=== PATIENT | male | born 1980 | race Caucasian/White ===

== ENCOUNTER 2017-05-20 17:08 | Emergency (ER) | payer OTHER ==
[~2017-05-20] VITALS: Ht 172.7 cm; Wt 152.9 kg
[~2017-05-20 17:08] MED LIST: ACETAMINOPHEN-1 EAC1 PO; CEPHALEXIN 500500 M3 PO; CIPRO500 M1 PO; FLAGYL500 MG PO; IBUPROFEN 800800 M1 PO; PENICILLIN VK500 M1 PO; PREDNISONE 20 M20 MG PO; PROAIR HFA8.5 GM INH; ZPAK PO
[2017-05-20 17:31] LABS: URINE BILIRUBIN NEGATIVE (Negative); URINE BLOOD 3+ (Negative); URINE CLARITY CLOUDY; URINE COLOR RED; URINE GLUCOSE-RANDOM NEGATIVE (Negative); URINE KETONES NEGATIVE (Negative); URINE NITRITE-REFLEX NEGATIVE (Negative); URINE PROTEIN 2+ (Negative); URINE SPECIFIC GRAVITY >= 1.030 (1.005-1.030); URINE UROBILINOGEN 0.2 E.U./dl (0.2-1.0)
[2017-05-20 17:32] LABS: URINE LEUKOCYTES-REFLEX 2+ (Negative)
[2017-05-20 17:34] LABS: URINE RBC >20 Many /HPF (0-2)
[2017-05-20 17:36] LABS: CASTS None Seen /LPF (None Seen); CRYSTALS None Seen /LPF (None Seen); SQUAMOUS 0-3 Few /LPF (0-3)
[2017-05-20 17:37] LABS: URINE WBC-REFLEX >25 Many /HPF (0-5)
[2017-05-20 18:40] LABS: INFLUENZA A ANTIGEN None Detected (None Detect); INFLUENZA B ANTIGEN None Detected (None Detect)
[2017-05-20] MEDS ORDERED: DOXYCYCLINE 10100 MG PO (18:52)
[2017-05-20 19:17] VITALS: BP 134/67
== END 2017-05-20 19:25 | disposition home or self-care (01) ==
LOC: M.ERS 17:08
PROVIDERS: Nurse Practitioner Family
DX: A64 Unspecified sexually transmitted disease (principal); N39.0 Urinary tract infection, site not specified

== ENCOUNTER 2018-02-06 19:41 | Emergency (ER) | payer OTHER ==
[~2018-02-06] VITALS: Ht 172.7 cm; Wt 124.7 kg
[~2018-02-06 19:41] MED LIST changes: +DOXYCYCLINE 10100 MG PO
[2018-02-06 20:43] LABS: INFLUENZA A ANTIGEN None Detected (None Detect); INFLUENZA B ANTIGEN None Detected (None Detect)
[2018-02-06] MEDS ORDERED: PREDNISONE 20 M20 MG PO (21:00)
[2018-02-06 21:13] VITALS: BP 126/73
--- NOTE | 2018-02-08 12:32 | EKG ---
[place] [address] ELECTROCARDIOGRAM REPORT Name: ANDREWS WESTON [id number] Admission: 02/06/18 Attend Phys: Discharge: 02/06/18 Date of : 78 Report #: [id number] THIS REPORT FOR: //name// [facility] ED Test Date: 2018-02-06 Test Time: 20:20:10 Pat Name: ANDREWS WESTON Department: Room: Gender: M Banquet Supervisor: : 1980 Requested By: Evita Dugan Order Number: [id number] MD: Juan Miguel Cross Measurements Intervals [place] Rate: 106 P: 25 MD: 152 QRS: -17 QRSD: 95 T: 45 QT: 323 QTc: 429 Interpretive Statements Sinus tachycardia Abnormal R-wave progression, late transition Left ventricular hypertrophy No previous ECG available for comparison Electronically Signed On 02-08-2018 12:31:54 POWER PLANT SUPERVISOR by Juan Miguel Cross [email or web address] <ELECTRONICALLY SIGNED> By: Juan Miguel Cross MD, [facility] 02/08/18 1231 19 19 Juan Miguel Cross MD, FACC /EPI
== END 2018-02-06 21:13 | disposition home or self-care (01) ==
LOC: M.ERS 19:41
PROVIDERS: Nurse Practitioner Family
DX: J03.80 Acute tonsillitis due to other specified organisms (principal)

== ENCOUNTER 2018-03-13 10:56 | Emergency (ER) | payer OTHER ==
[~2018-03-13] VITALS: Ht 172.7 cm; Wt 131.5 kg
[2018-03-13 12:28] LABS: ABSOLUTE LYMPHOCYTES 2.9 thou/uL (0.8-5.3); ABSOLUTE MONOCYTES 0.6 thou/uL (0.0-1.2); ABSOLUTE NEUTROPHILS 2.9 thou/uL (1.6-8.1); BASOPHILS 0.6 %; EOSINOPHILS 0.6 %; HEMATOCRIT 43.9 % (42.0-52.0); HEMOGLOBIN 14.7 gm/dL (14.0-18.0); MCH 30.5 pg (26.0-34.0); MCHC 33.4 g/dL (28.0-37.0); MCV 91.2 fL (80.0-100.0); MONOCYTES 8.8 %; MPV 6.9 fl. (7.2-11.1); NUCLEATED RBCS 0 /100WBC; PLATELET COUNT* 381 thou/uL (150-400); RBC 4.82 mil/uL (4.50-6.00); RDW-CV 15.1 % (10.5-14.5); WBC 6.4 thou/uL (4.0-11.0)
[2018-03-13 13:08] LABS: ANION GAP 5 mmol/L (7-16); BUN 14 mg/dL (7-18); CALCIUM 7.9 mg/dL (8.5-10.1); CHLORIDE 105 mmol/L (98-107); CO2 29 mmol/L (21-32); CREATININE 0.9 mg/dL (0.6-1.3); GLUCOSE 92 mg/dL (70-99); POTASSIUM 4.3 mmol/L (3.5-5.1); SODIUM 139 mmol/L (136-145)
[2018-03-13 13:19] LABS: ALBUMIN 2.7 g/dL (3.4-5.0); ALKALINE PHOSPHATASE 132 U/L (46-116); NT-PRO BRAIN NAT PEPTIDE 45 pg/mL (<300); SGOT 114 U/L (15-37); SGPT 228 U/L (30-65); TOTAL BILIRUBIN 0.3 mg/dL (<0.1-1.0); TOTAL PROTEIN 6.6 g/dL (6.4-8.2); TROPONIN-I LEVEL <0.06 ng/mL (<0.06)
[2018-03-13 15:08] VITALS: BP 152/94
--- NOTE | 2018-03-13 16:50 | EKG ---
[place] [address] ELECTROCARDIOGRAM REPORT Name: ANDREWS WESTON [id number] Admission: 03/13/18 Attend Phys: Discharge: 03/13/18 Date of : 78 Report #: [id number] THIS REPORT FOR: //name// [facility] ED Test Date: 2018-03-13 Test Time: 11:08:26 Pat Name: NADREWS WESTON Department: Room: Gender: M Group Activities Aide: Nichol : 1980 Requested By: William Pizano Order Number: [id number] MD: Andrew Torres Measurements Intervals [place] Rate: 89 P: 11 NM: 151 QRS: -20 QRSD: 91 T: 20 QT: 338 QTc: 412 Interpretive Statements Sinus rhythm Compared to ECG 02/06/2018 20:20:10 Q waves now present Sinus tachycardia no longer present Electronically Signed On 03-13-2018 16:50:27 ELEMENTARY SCHOOL REGISTRAR by Andrew Torres [email or web address] <ELECTRONICALLY SIGNED> By: Andrew Torres MD, [facility] 03/13/18 1650 07 Andrew Torres MD, FACC /EPI
== END 2018-03-13 15:08 | disposition home or self-care (01) ==
LOC: M.ERS 10:56
PROVIDERS: Nurse Practitioner Family
DX: R94.5 Abnormal results of liver function studies (principal); R07.89 Other chest pain

== ENCOUNTER 2018-04-20 14:52 | Emergency (ER) | payer BC ==
[~2018-04-20] VITALS: Ht 172.7 cm; Wt 129.3 kg
[2018-04-20 15:45] LABS: INFLUENZA A ANTIGEN None Detected (None Detect); INFLUENZA B ANTIGEN None Detected (None Detect)
[2018-04-20] MEDS ORDERED: MEDROLDOSEPACK PO (15:49)
[2018-04-20] MEDS ORDERED: AMOXICILLIN875 MG PO (15:49)
[2018-04-20 15:58] VITALS: BP 150/80
== END 2018-04-20 15:59 | disposition home or self-care (01) ==
LOC: M.ERS 14:52
PROVIDERS: Nurse Practitioner Family
DX: J02.0 Streptococcal pharyngitis (principal)

== ENCOUNTER 2018-07-08 12:40 | Emergency (ER) | payer BC ==
[~2018-07-08] VITALS: Ht 172.7 cm; Wt 129.3 kg
[~2018-07-08 12:40] MED LIST changes: +AMOXICILLIN875 MG PO; +MEDROLDOSEPACK PO
[2018-07-08] MEDS ORDERED: ACYCLOVIR 400400 MG PO (13:15)
[2018-07-08] MEDS ORDERED: CENTANY30 GM TOP (13:15)
[2018-07-08] MEDS ORDERED: KEFLEX500 M1 PO (13:15)
[2018-07-08] MEDS ORDERED: ZOVIRAX5 GM TOP (13:15)
[2018-07-08 13:27] VITALS: BP 195/104
== END 2018-07-08 13:28 | disposition home or self-care (01) ==
LOC: M.ERS 12:40
DX: A60.02 Herpesviral infection of other male genital organs (principal); L08.89 Other specified local infections of the skin and subcutaneous tissue

== ENCOUNTER 2018-10-29 16:05 | Emergency (ER) | payer BC ==
[~2018-10-29] VITALS: Ht 172.7 cm; Wt 136.1 kg
[~2018-10-29 16:05] MED LIST changes: +ACYCLOVIR 400400 MG PO; +CENTANY30 GM TOP; +KEFLEX500 M1 PO; +ZOVIRAX5 GM TOP
[2018-10-29] MEDS ORDERED: NAPROSYN500 MG PO (17:02)
[2018-10-29] MEDS ORDERED: ZANAFLEX4 MG PO (17:02)
[2018-10-29 17:09] VITALS: BP 141/87
== END 2018-10-29 17:11 | disposition home or self-care (01) ==
LOC: M.ERS 16:05
DX: S20.219A Contusion of unspecified front wall of thorax, initial encounter (principal); V89.2XXA Person injured in unspecified motor-vehicle accident, traffic, initial encounter; Y92.89 Other specified places as the place of occurrence of the external cause; Y93.89 Activity, other specified; Y99.8 Other external cause status

== ENCOUNTER 2019-06-19 21:39 | Emergency (ER) | payer BC ==
[~2019-06-19] VITALS: Ht 172.7 cm; Wt 154.2 kg
[~2019-06-19 21:39] MED LIST changes: +NAPROSYN500 MG PO; +ZANAFLEX4 MG PO
[2019-06-19 22:28] LABS: INFLUENZA A ANTIGEN Negative (Negative); INFLUENZA B ANTIGEN Negative (Negative)
[2019-06-19] MEDS ORDERED: AMOXICILLIN500 M1 PO (23:21)
[2019-06-19 23:47] VITALS: BP 153/90
== END 2019-06-19 23:48 | disposition home or self-care (01) ==
LOC: M.ERS 21:39
PROVIDERS: Personal Emergency Response Attendant
DX: J03.90 Acute tonsillitis, unspecified (principal)

== ENCOUNTER 2019-10-03 02:54 | Emergency (ER) | payer BC ==
[~2019-10-03] VITALS: Ht 172.7 cm; Wt 163.3 kg
[~2019-10-03 02:54] MED LIST changes: +AMOXICILLIN500 M1 PO
[2019-10-03 04:22] VITALS: BP 180/101
== END 2019-10-03 04:23 | disposition home or self-care (01) ==
LOC: M.ERS 02:54
DX: B34.9 Viral infection, unspecified (principal)

== ENCOUNTER 2020-12-26 16:31 | Emergency (ER) | payer BC ==
[~2020-12-26] VITALS: Ht 170.2 cm; Wt 154.2 kg
[2020-12-26 18:05] VITALS: BP 171/102
== END 2020-12-26 18:06 | disposition home or self-care (01) ==
LOC: M.ERS 16:31
DX: J06.9 Acute upper respiratory infection, unspecified (principal); Z20.822 Contact with and (suspected) exposure to COVID-19

== ENCOUNTER 2021-03-15 19:58 | Emergency (ER) | payer OTHER ==
[~2021-03-15] VITALS: Ht 172.7 cm; Wt 172.4 kg
[2021-03-15 20:04] VITALS: BP 180/94
[2021-03-15 20:41] LABS: INFLUENZA A ANTIGEN Negative (Negative); INFLUENZA B ANTIGEN Negative (Negative)
[2021-03-15] MEDS ORDERED: VENTOLIN HFA 1818 GM INH ×2 (21:24→21:26)
== END 2021-03-15 21:33 | disposition home or self-care (01) ==
LOC: M.ERS 19:58
PROVIDERS: Emergency Medicine
DX: U07.1 COVID-19 (principal)

== ENCOUNTER 2021-03-21 05:00 | Inpatient (IN) | payer OTHER ==
[~2021-03-21] VITALS: Ht 172.7 cm; Wt 172.4 kg
[~2021-03-21 05:00] MED LIST changes: +VENTOLIN HFA 1818 GM INH
[2021-03-21 05:10] VITALS: BP 172/85
[2021-03-21 06:13] LABS: ABSOLUTE LYMPHOCYTES 0.9 thou/uL (0.8-5.3); ABSOLUTE MONOCYTES 0.5 thou/uL (0.0-1.2); ABSOLUTE NEUTROPHILS 5.8 thou/uL (1.6-8.1); BASOPHILS 0.3 %; EOSINOPHILS 0.3 %; HEMATOCRIT 41.8 % (42.0-52.0); HEMOGLOBIN 13.6 gm/dL (14.0-18.0); LYMPHOCYTES 11.8 %; MCHC 32.4 g/dL (28.0-37.0); MCV 89.5 fL (80.0-100.0); MONOCYTES 7.5 %; MPV 6.6 fl. (7.2-11.1); NUCLEATED RBCS 0 /100WBC; PLATELET COUNT* 358 thou/uL (150-400); POLYS 80.1 %; RBC 4.67 mil/uL (4.50-6.00); RDW-CV 14.6 % (10.5-14.5); WBC 7.3 thou/uL (4.0-11.0)
[2021-03-21 06:22] LABS: CALCIUM 7.7 mg/dL (8.5-10.1); CREATININE 0.9 mg/dL (0.6-1.3)
[2021-03-21 06:33] LABS: ALBUMIN 2.7 g/dL (3.4-5.0); TOTAL BILIRUBIN 0.4 mg/dL (<0.1-1.0); TOTAL PROTEIN 7.1 g/dL (6.4-8.2)
[2021-03-21 10:00] VITALS: BP 149/89
[2021-03-21 12:57] LABS: URINE BILIRUBIN NEGATIVE (Negative); URINE BLOOD NEGATIVE (Negative); URINE CLARITY CLEAR; URINE COLOR YELLOW; URINE GLUCOSE-RANDOM NEGATIVE (Negative); URINE KETONES 2+ (Negative); URINE LEUKOCYTES-REFLEX NEGATIVE (Negative); URINE NITRITE-REFLEX NEGATIVE (Negative); URINE PROTEIN NEGATIVE (Negative); URINE SPECIFIC GRAVITY 1.015 (1.005-1.030)
[2021-03-21 13:30] VITALS: BP 158/89
--- NOTE | 2021-03-21 16:49 | NUR ---
PT STATES OKAY TO GIVE INFO TO MOM MYRANDA GUILLEN.
[2021-03-21 18:07] VITALS: BP 191/104
--- NOTE | 2021-03-21 18:14 | NUR ---
GLEN ELLIOTT MESSAGE SENT REGARDING PAIN- PT HAS NO PRN MEDIACTIONS ORDERED AT THIS TIME.
--- NOTE | 2021-03-21 18:46 | NUR ---
GLEN ELLIOTT MESSAGE: PER RESPIRATORY- UNSUCCESSFUL ATTEMPTS HAVE BEEN MADE TO COLLECT ABG'S. WONDERING IF THE ORDER CAN BE SWITCHED TO VBG'S.
[2021-03-21 20:00] VITALS: BP 157/73
[2021-03-22] VITALS (7 sets, daily range): BP systolic 149–154; BP diastolic 54–89
[2021-03-22 03:23] LABS: APTT 28.2 Seconds (25.0-31.3); PROTIME 10.7 Seconds (9.20-11.50)
[2021-03-22 03:27] LABS: ALBUMIN 2.8 g/dL (3.4-5.0); CALCIUM 7.7 mg/dL (8.5-10.1); CREATININE 1.1 mg/dL (0.6-1.3); MAGNESIUM 2.4 mg/dL (1.8-2.4); PHOSPHORUS* 3.5 mg/dL (2.5-4.9); TOTAL BILIRUBIN 0.2 mg/dL (<0.1-1.0); TOTAL PROTEIN 7.3 g/dL (6.4-8.2)
[2021-03-22 03:29] LABS: HEMATOCRIT 41.6 % (42.0-52.0); HEMOGLOBIN 13.3 gm/dL (14.0-18.0); MCH 28.5 pg (26.0-34.0); MCV 88.9 fL (80.0-100.0); MPV 6.8 fl. (7.2-11.1); RBC 4.68 mil/uL (4.50-6.00); RDW-CV 14.5 % (10.5-14.5); WBC 6.9 thou/uL (4.0-11.0)
--- NOTE | 2021-03-22 10:36 | EKG ---
[place] [address] ELECTROCARDIOGRAM REPORT Name: ANDREWS WESTON Room: [address] ADM IN .R.#: [id number] Admission: 03/21/21 Attend Phys: Sammy Pruitt Discharge: Date of : 78 Date of Service: 03/21/21521 Report #: [id number] THIS REPORT FOR: //name// [facility] ED Test Date: 2021-03-21 Test Time: 05:22:57 Pat Name: ANDREWS WESTON Department: Room: [facility] Gender: M Meat Cutting Teacher: DAVID : 1980 Requested By: Luz Rodriguez Order Number: [id number] MD: Andrew Torres Measurements Intervals [place] Rate: 108 P: 19 [place]: 139 QRS: -17 QRSD: 99 T: 73 QT: 328 QTc: 440 Interpretive Statements Sinus tachycardia Left ventricular hypertrophy, by voltage Baseline wander in lead(s) V2,V3,V4 Compared to ECG 03/13/2018 11:08:26 Left ventricular hypertrophy now present Sinus rhythm no longer present Electronically Signed On 03-22-2021 10:36:35 BLOOD BANK TECHNICIAN by Andrew Torres [email or web address] <ELECTRONICALLY SIGNED> By: Andrew Torres MD, FACC 03/22/21 1036 1 1 Andrew Torres MD, FAC /EPI
[2021-03-22 12:41] LABS: HEMATOCRIT 41.7 % (42.0-52.0); HEMOGLOBIN 13.4 gm/dL (14.0-18.0); MCH 28.5 pg (26.0-34.0); MCV 88.9 fL (80.0-100.0); MPV 6.7 fl. (7.2-11.1); NUCLEATED RBCS 0 /100WBC; PLATELET COUNT* 481 thou/uL (150-400); RBC 4.69 mil/uL (4.50-6.00); RDW-CV 14.7 % (10.5-14.5); WBC 11.1 thou/uL (4.0-11.0)
[2021-03-22 12:55] LABS: ALBUMIN 2.8 g/dL (3.4-5.0); CALCIUM 7.7 mg/dL (8.5-10.1); MAGNESIUM 2.4 mg/dL (1.8-2.4); POTASSIUM 4.1 mmol/L (3.5-5.1); TOTAL BILIRUBIN 0.1 mg/dL (<0.1-1.0); TOTAL PROTEIN 7.2 g/dL (6.4-8.2)
[2021-03-22 13:58] LABS: ABSOLUTE LYMPHOCYTES 0.8 thou/uL (0.8-5.3); ABSOLUTE MONOCYTES 0.1 thou/uL (0.0-1.2); ABSOLUTE NEUTROPHILS 10.2 thou/uL (1.6-8.1); METAMYELOCYTES 2 %; PLATELET ESTIMATE ADEQUATE
--- NOTE | 2021-03-22 17:35 | NUR ---
PATIENT RESTING IN BED. 91% ON 6L OXYGEN. IV TO LEFT AC, SALINE LOCKED. ORIENTED TO ROOM AND FLOOR. ALL QUESTIONS AND CONCERNS ADDRESSED.
[2021-03-22 20:30] LABS: INFLUENZA A ANTIGEN Negative (Negative); INFLUENZA B ANTIGEN Negative (Negative)
[2021-03-23 00:15] VITALS: BP 136/83
[2021-03-23 04:21] VITALS: BP 131/78
[2021-03-23 04:45] LABS: ABSOLUTE LYMPHOCYTES 0.9 thou/uL (0.8-5.3); ABSOLUTE MONOCYTES 0.3 thou/uL (0.0-1.2); ABSOLUTE NEUTROPHILS 11.6 thou/uL (1.6-8.1); BASOPHILS 0.2 %; HEMATOCRIT 40.4 % (42.0-52.0); HEMOGLOBIN 12.9 gm/dL (14.0-18.0); LYMPHOCYTES 7.2 %; MCH 28.5 pg (26.0-34.0); MCHC 31.9 g/dL (28.0-37.0); MCV 89.5 fL (80.0-100.0); MONOCYTES 2.6 %; MPV 6.8 fl. (7.2-11.1); NUCLEATED RBCS 0 /100WBC; PLATELET COUNT* 476 thou/uL (150-400); RBC 4.52 mil/uL (4.50-6.00); RDW-CV 15.2 % (10.5-14.5); WBC 12.9 thou/uL (4.0-11.0)
[2021-03-23 05:11] LABS: ALBUMIN 2.8 g/dL (3.4-5.0); CALCIUM 7.7 mg/dL (8.5-10.1); TOTAL BILIRUBIN 0.2 mg/dL (<0.1-1.0); TOTAL PROTEIN 7.1 g/dL (6.4-8.2)
--- NOTE | 2021-03-23 05:24 | NUR ---
pt stable and rested. bipap was ordered but pt refused. pt stable at 4L NC. remains free from injury. pain managed with tramadol. vitals wnl. continues to have SOA WITH EXERTION.
[2021-03-23 08:23] VITALS: BP 156/86
--- NOTE | 2021-03-23 10:33 | NUR ---
CM ASSESSMENT ASSESSMENT COMPLETED WITH PT. PT REPORTS HE LIVES HOME ALONE WITH STEPS TO LAUNDRY THAT POSE NO PROBLEM FOR HIM. PT HAS NO HX OF DME USE. PT IND WITH ADLS. PT HAS NO HX OF SKILLED, REHAB, OR HH. PT WOULD LIKE TO DC HOME WHEN MED CLEAR. CM TO FOLLOW FOR FUTURE DC PLANNING.
[2021-03-23 12:00] VITALS: BP 152/84
--- NOTE | 2021-03-23 14:17 | CON ---
[address] [address] CONSULTATION Name: ANDREWS WESTON Room: [address] IN .R.#: [id number] Admission: 03/21/21 Attend Phys: Janee Pritchard Discharge: Date of : 78 Report #: [id number] THIS REPORT FOR: cc: FAM - No family physician/PCP FAM - No family physician/PCP Quinn Bernal MD ~ DATE OF CONSULTATION: 03/22/2021 REQUESTING PHYSICIAN: Dr. Sorenson. INDICATION FOR CONSULTATION: Acute hypoxemic respiratory failure secondary to COVID-19. HISTORY OF PRESENT ILLNESS: A 40-year-old gentleman admitted with respiratory illness. He has 2 doses of COVID-19 vaccine, Moderna several months ago. At this time, does have shortness of breath, cough, scanty sputum production and does have mild swelling of lower extremities, tested positive for COVID a week ago. He is morbidly obese, body mass index is 58. REVIEW OF SYSTEMS: Negative except as mentioned above. He does have some sleep complaints that are longstanding and unchanged. PAST MEDICAL HISTORY: Morbid obesity, body mass index is 58. CURRENT MEDICATIONS: List in [employer] reviewed. FAMILY HISTORY: Unremarkable. SOCIAL HISTORY: Unremarkable. ALLERGIES: No known drug allergies. PHYSICAL EXAMINATION: GENERAL: He is alert, awake and oriented. VITAL SIGNS: In the records reviewed. NECK: Does not show raised JVP. CHEST: Breath sounds equal, decreased. HEART: Regular. No murmur. ABDOMEN: Soft, nontender. EXTREMITIES: Lower extremities, 1+ edema, no calf tenderness. LABORATORY DATA: X-rays in [facility] reviewed. ASSESSMENT AND PLAN: 1. Acute hypoxemic respiratory failure secondary to COVID-19. He is morbidly [facility] [address] [facility] [place] [address] CONSULTATION Name: ANDREWS WESTON Room: [address] IN [facility]#: [id number] Admission: 03/21/21 Attend Phys: Janee Pritchard Discharge: Date of : 78 Report #: [id number] obese and appears to have significant underlying obstructive sleep apnea. Therefore, would recommend adding BiPAP while asleep. Avoid supine sleep. 2. COVID-19, agree with remdesivir. Also, agree with dexamethasone. We will reassess tomorrow. If he is improving, then we will start tapering down the dexamethasone dose. We will watch LFTs. 3. Pulmonary infiltrates. Continue ceftriaxone. Dose increased. Check nasal swab for methicillin-resistant Staphylococcus aureus. Check sputum culture. Azithromycin switched to doxycycline to provide some methicillin-resistant Staphylococcus aureus coverage. 4. Mild fluid overload. Diuresis one dose tomorrow. 5. Evaluation for thromboembolic phenomena, appears unlikely considering a D-dimer is not elevated. 6. Deep venous thrombosis prophylaxis. Increase Lovenox to intermediate dose. 7. Gastrointestinal prophylaxis, Protonix. 8. Clostridium difficile prophylaxis, Lactinex. 9. Mild hyperglycemia, insulin sliding scale. Thanks for this consultation. <ELECTRONICALLY SIGNED> By: Quinn Bernal MD 03/23/21 1417 [id number] Bernal MD /nt
[2021-03-23 16:00] VITALS: BP 146/85
[2021-03-23 20:02] VITALS: BP 149/85
[2021-03-24] VITALS (7 sets, daily range): BP systolic 129–147; BP diastolic 67–92
--- NOTE | 2021-03-24 00:26 | NUR ---
PT REFUSED TO WEAR BIPAP PT. ON 5LPM NASAL CANNULA.
--- NOTE | 2021-03-24 04:01 | NUR ---
PT A&OX4, VSS ON 5L O2 NC (REFUSED BIPAP), UP AD MARC, IV SALINE LOCKED. SR ON TELE MONITOR. NON-CARDIAC CHEST PAIN WELL CONTROLED WITH SCHEDULED TRAMADOL. PT SLEEPING WELL. WILL CONTINUE TO MONITOR.
[2021-03-24 05:22] LABS: ABSOLUTE LYMPHOCYTES 1.1 thou/uL (0.8-5.3); ABSOLUTE MONOCYTES 0.4 thou/uL (0.0-1.2); ABSOLUTE NEUTROPHILS 8.9 thou/uL (1.6-8.1); BASOPHILS 0.1 %; HEMATOCRIT 43.1 % (42.0-52.0); HEMOGLOBIN 13.7 gm/dL (14.0-18.0); MCH 28.7 pg (26.0-34.0); MCHC 31.8 g/dL (28.0-37.0); MCV 90.2 fL (80.0-100.0); MONOCYTES 3.6 %; MPV 6.8 fl. (7.2-11.1); NUCLEATED RBCS 0 /100WBC; PLATELET COUNT* 476 thou/uL (150-400); POLYS 85.3 %; RBC 4.78 mil/uL (4.50-6.00); RDW-CV 14.9 % (10.5-14.5); WBC 10.4 thou/uL (4.0-11.0)
[2021-03-24 05:34] LABS: ALBUMIN 2.2 g/dL (3.4-5.0); CALCIUM 7.6 mg/dL (8.5-10.1); CREATININE 0.8 mg/dL (0.6-1.3); MAGNESIUM 2.5 mg/dL (1.8-2.4); POTASSIUM 4.5 mmol/L (3.5-5.1); TOTAL BILIRUBIN 0.5 mg/dL (<0.1-1.0); TOTAL PROTEIN 5.9 g/dL (6.4-8.2)
--- NOTE | 2021-03-24 10:42 | NUR ---
Nutrition: Pt admitted to COVID unit. Assessed for high BMI. Usual wt is ~340#, today's wt recorded as bed wt of 380#. Please reweigh for accuracy. Pt is on regular diet. Meds: vit D, C, l. acidophilus, albuterol, insulin. Labs: BG 159-134, alb 2.2, prealb 27.5. GOALS: >75% of meals consumed, gradual wt loss, good BG control. Consider mild to low nutrition risk.
--- NOTE | 2021-03-24 16:31 | NUR ---
CM FOLLOWUP PT NOT MED CLEAR. PT ON 4-5L O2. CM TO FOLLOW FOR DC PLANNING.
[2021-03-24] MEDS ORDERED: VITAMIN D325 MC2 PO (17:07)
[2021-03-24] MEDS ORDERED: ASA81BEC PO (17:07)
[2021-03-24] MEDS ORDERED: DEXAMETHASONE1 MG PO (17:07)
[2021-03-24] MEDS ORDERED: DOXYCYCLINE 10100 MG PO (17:07)
[2021-03-24] MEDS ORDERED: VITAMIN C1000 MG PO (17:07)
== END 2021-03-24 19:45 | disposition home or self-care (01) | DRG 871 ==
LOC: M.ERS 05:00 → M.ORTHSURG 06:17 → M.TBA-ER 06:17 → M.ORTHSURG 03-22 09:28
PROVIDERS: Internal Medicine; Internal Medicine Critical Care Medicine; Personal Emergency Response Attendant; ADMIT Internal Medicine; ATTEND Internal Medicine
PROC: XW033E5 Introduction of Remdesivir Anti-infective into Peripheral Vein, Percutaneous Approach, New Technology Group 5 (ICD-10-PCS; principal; 2021-03-22)
PROC: 5A09357 Assistance with Respiratory Ventilation, Less than 24 Consecutive Hours, Continuous Positive Airway Pressure (ICD-10-PCS; 2021-03-23)
DX: A41.89 Other specified sepsis (principal); J12.82 Pneumonia due to coronavirus disease 2019; U07.1 COVID-19; J96.01 Acute respiratory failure with hypoxia; E66.01 Morbid (severe) obesity due to excess calories; E87.70 Fluid overload, unspecified; R73.9 Hyperglycemia, unspecified; Z86.16 Personal history of COVID-19; Z68.43 Body mass index [BMI] 50.0-59.9, adult